=== PATIENT | male | born 1980 | race Caucasian/White ===

== ENCOUNTER 2018-02-06 05:40 | Inpatient (IN) ==
[2018-02-06] MEDS ORDERED: ceFAZolin 2 GM IV; once IV.SIG ONE (06:00)
[2018-02-06] MEDS ORDERED: Diphtheria/Tetanus/Pertussis Vaccine Inj 0.5 ML Syringe IM ONE (06:00)
[2018-02-06] MEDS ORDERED: Sod Chloride 0.9% Inj 1,000 ML IV.SIG SCH (06:00)
[2018-02-06 06:05] LABS: Baso # (Auto) 0.2 th/mm3 (0.0-0.2); Baso % (Auto) 1.4 % (0.0-2.0); Eos # (Auto) 0.4 th/mm3 (0.0-0.4); Eos % (Auto) 2.4 % (0.0-4.0); Hematocrit 44.4 % (39.0-51.0); Hemoglobin 14.6 gm/dL (13.0-17.0); Lymph # (Auto) 3.5 th/mm3 (1.0-4.8); Lymph % (Auto) 21.7 % (9.0-44.0); Mean Corpuscular HGB Conc 32.9 % (32.0-36.0); Mean Corpuscular Hemoglobin 33.2 pg (27.0-34.0); Mean Corpuscular Volume 100.9 fL (80.0-100.0); Mean Platelet Volume 8.3 fL (7.0-11.0); Mono # (Auto) 0.6 th/mm3 (0.0-0.9); Mono % (Auto) 3.8 % (0.0-8.0); Neut # (Auto) 11.3 th/mm3 (1.8-7.7); Neut % (Auto) 70.7 % (16.0-70.0); Platelet Count 211 th/mm3 (150-450); Red Cell Distribution Width 13.3 % (11.6-17.2); White Blood Count 15.9 th/mm3 (4.0-11.0)
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
[2018-02-06 06:14] LABS: Activated Partial Thrombo Time 22.1 sec (24.3-30.1); INR 1.1 Ratio; Prothrombin Time 10.8 sec (9.8-11.6)
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
[2018-02-06] MEDS ORDERED: Morphine Inj 4 MG/ML Vial IV.PUSH PRN (07:30)
[2018-02-06 10:38] LABS: Bilirubin,Urine Negative (Negative); Clarity,Urine Hazy (Clear); Color,Urine Yellow (Yellw/Straw); Glucose,Urine (UA) Negative (Negative); Leukocyte Esterase,Urine Negative (Negative); Mucus,Urine Few /lpf (Occasional); Nitrite,Urine Negative (Negative); Specific Gravity,Urine 1.047 (1.002-1.035)
[2018-02-06 10:52] LABS: Amphetamine Screen,Urine Neg (Neg); Barbiturate Screen,Urine Neg (Neg); Cannabinoid Screen,Urine Neg (Neg); Cocaine Screen,Urine Neg (Neg)
[2018-02-06 10:56] LABS: Opiate Screen,Urine Neg (Neg)
[2018-02-06] MEDS: oxyCODONE/Acetaminophen 10/325 Tablet PO PRN ×2 (11:21→14:59)
[2018-02-06] MEDS: Sod Chloride 0.9% Inj 1,000 ML IV.CONT SCH ×3 (11:21→18:28)
[2018-02-06] MEDS: Pantoprazole Inj 40 MG Vial IV.PUSH SCH (11:21)
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
[2018-02-06] MEDS ORDERED: Naloxone Inj 0.4 MG/ML Vial IV.PUSH PRN (15:11)
[2018-02-06] MEDS ORDERED: chlordiazePOXIDE 25 MG Capsule PO PRN (15:18)
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
[2018-02-06] MEDS: HYDROmorphone PCA Inj 6 MG/30 ML PCA.VIAL PCA PRN ×2 (15:43→22:07)
[2018-02-06] MEDS: ceFAZolin 2 GM Premix Inj 2 GM/50 ML PIGGYBACK IV.SIG SCH (15:43)
[2018-02-06] MEDS: Methocarbamol 500 MG Tablet PO SCH ×2 (16:05→22:05)
[2018-02-06] MEDS: Multivitamin Inj 10 ML, Thiamine Inj 100 MG, Folic Acid Inj 1 MG in Sodium Chlor 0.9% I... IV.SIG SCH (17:47)
[2018-02-06] MEDS: Senna/Docusate Sodium 8.6/50 MG Tablet PO SCH (22:05)
[2018-02-07] MEDS: ceFAZolin 2 GM Premix Inj 2 GM/50 ML PIGGYBACK IV.SIG SCH ×3 (02:26→16:49)
[2018-02-07 04:25] LABS: Baso % (Auto) 0.4 % (0.0-2.0); Eos % (Auto) 0.4 % (0.0-4.0); Hematocrit 38.2 % (39.0-51.0); Lymph # (Auto) 1.6 th/mm3 (1.0-4.8); Lymph % (Auto) 17.3 % (9.0-44.0); Mean Corpuscular Hemoglobin 34.2 pg (27.0-34.0); Mean Corpuscular Volume 100.7 fL (80.0-100.0); Mean Platelet Volume 8.9 fL (7.0-11.0); Mono # (Auto) 0.9 th/mm3 (0.0-0.9); Mono % (Auto) 9.1 % (0.0-8.0); Neut # (Auto) 6.9 th/mm3 (1.8-7.7); Neut % (Auto) 72.8 % (16.0-70.0); Platelet Count 130 th/mm3 (150-450); Red Blood Count 3.79 mil/mm3 (4.50-5.90); Red Cell Distribution Width 12.9 % (11.6-17.2); White Blood Count 9.5 th/mm3 (4.0-11.0)
[2018-02-07 05:24] LABS: Albumin 3.6 g/dL (3.4-5.0); Calcium 7.4 mg/dL (8.5-10.1); Carbon Dioxide 26.4 meq/L (21.0-32.0); Total Protein 6.2 g/dL (6.4-8.2)
[2018-02-07] MEDS: HYDROmorphone PCA Inj 6 MG/30 ML PCA.VIAL PCA PRN ×2 (08:30→16:50)
[2018-02-07] MEDS: Methocarbamol 500 MG Tablet PO SCH ×3 (08:43→21:25)
[2018-02-07] MEDS: Pantoprazole Inj 40 MG Vial IV.PUSH SCH (08:43)
[2018-02-07] MEDS: Senna/Docusate Sodium 8.6/50 MG Tablet PO SCH ×2 (08:44→21:25)
[2018-02-07] MEDS: Sod Chloride 0.9% Inj 1,000 ML IV.CONT SCH ×3 (11:00→18:38)
[2018-02-07] MEDS: Multivitamin Inj 10 ML, Thiamine Inj 100 MG, Folic Acid Inj 1 MG in Sodium Chlor 0.9% I... IV.SIG SCH (13:07)
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
[2018-02-07] MEDS: Enoxaparin Inj 30 MG/0.3 ML Syringe SQ SCH (21:25)
[2018-02-08] MEDS: ceFAZolin 2 GM Premix Inj 2 GM/50 ML PIGGYBACK IV.SIG SCH ×3 (00:14→15:05)
[2018-02-08] MEDS ORDERED: RESP: Racemic Epinephrine 2.25% 0.5 ML Neb NEB SCH (01:45)
[2018-02-08 04:25] LABS: Baso % (Auto) 0.6 % (0.0-2.0); Eos # (Auto) 0.1 th/mm3 (0.0-0.4); Eos % (Auto) 1.3 % (0.0-4.0); Hematocrit 36.4 % (39.0-51.0); Hemoglobin 12.3 gm/dL (13.0-17.0); Lymph % (Auto) 14.5 % (9.0-44.0); Mean Corpuscular HGB Conc 33.8 % (32.0-36.0); Mean Corpuscular Hemoglobin 33.9 pg (27.0-34.0); Mean Corpuscular Volume 100.5 fL (80.0-100.0); Mean Platelet Volume 8.7 fL (7.0-11.0); Mono # (Auto) 0.5 th/mm3 (0.0-0.9); Mono % (Auto) 6.8 % (0.0-8.0); Neut # (Auto) 5.5 th/mm3 (1.8-7.7); Neut % (Auto) 76.8 % (16.0-70.0); Platelet Count 112 th/mm3 (150-450); Red Blood Count 3.62 mil/mm3 (4.50-5.90); Red Cell Distribution Width 12.8 % (11.6-17.2); White Blood Count 7.2 th/mm3 (4.0-11.0)
[2018-02-08 04:44] LABS: Albumin 3.3 g/dL (3.4-5.0); Anion Gap 7 meq/L (5-15); Aspartate Aminotransferase 72 U/L (15-37); Blood Urea Nitrogen 12 mg/dL (7-18); Carbon Dioxide 26.7 meq/L (21.0-32.0); Chloride 105 meq/L (98-107); Glomerular Filtration Rate Greater Than 89 mL/min (>89); Glucose,Random 100 mg/dL (74-106); Potassium 3.6 meq/L (3.5-5.1); Sodium 139 meq/L (136-145)
[2018-02-08 04:48] LABS: Alanine Aminotransferase 58 U/L (12-78); Alkaline Phosphatase 71 U/L (45-117); Total Protein 6.2 g/dL (6.4-8.2)
[2018-02-08] MEDS: Methocarbamol 500 MG Tablet PO SCH ×3 (05:49→22:54)
[2018-02-08] MEDS ORDERED: Sodium Chloride 0.65% Nasal Spray 45 ML Bottle EACH NARE PRN (11:18)
[2018-02-08] MEDS: HYDROmorphone PCA Inj 6 MG/30 ML PCA.VIAL PCA PRN (11:44)
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
[2018-02-08] MEDS: Acetaminophen 325 MG Tablet PO PRN ×2 (16:42→20:43)
[2018-02-08] MEDS: LORazepam 1 MG Tablet PO PRN (18:21)
[2018-02-08] MEDS: Enoxaparin Inj 30 MG/0.3 ML Syringe SQ SCH ×2 (20:39→23:15)
[2018-02-08] MEDS: Senna/Docusate Sodium 8.6/50 MG Tablet PO SCH ×2 (20:40→23:15)
[2018-02-08] MEDS: Multivitamin Inj 10 ML, Thiamine Inj 100 MG, Folic Acid Inj 1 MG in Sodium Chlor 0.9% I... IV.SIG SCH (23:15)
[2018-02-08] MEDS: Pantoprazole Inj 40 MG Vial IV.PUSH SCH (23:15)
[2018-02-09] MEDS: ceFAZolin 2 GM Premix Inj 2 GM/50 ML PIGGYBACK IV.SIG SCH (00:10)
[2018-02-09] MEDS: Acetaminophen 325 MG Tablet PO PRN (02:50)
[2018-02-09 05:13] LABS: Baso # (Auto) 0.1 th/mm3 (0.0-0.2); Baso % (Auto) 0.9 % (0.0-2.0); Eos # (Auto) 0.2 th/mm3 (0.0-0.4); Eos % (Auto) 2.3 % (0.0-4.0); Hematocrit 38.3 % (39.0-51.0); Lymph # (Auto) 1.2 th/mm3 (1.0-4.8); Lymph % (Auto) 18.6 % (9.0-44.0); Mean Corpuscular Hemoglobin 33.6 pg (27.0-34.0); Mean Corpuscular Volume 98.7 fL (80.0-100.0); Mono # (Auto) 0.5 th/mm3 (0.0-0.9); Mono % (Auto) 7.1 % (0.0-8.0); Neut # (Auto) 4.8 th/mm3 (1.8-7.7); Neut % (Auto) 71.1 % (16.0-70.0); Platelet Count 133 th/mm3 (150-450); Red Blood Count 3.88 mil/mm3 (4.50-5.90); Red Cell Distribution Width 12.6 % (11.6-17.2); White Blood Count 6.7 th/mm3 (4.0-11.0)
[2018-02-09 05:41] LABS: Alanine Aminotransferase 48 U/L (12-78); Albumin 3.2 g/dL (3.4-5.0); Alkaline Phosphatase 70 U/L (45-117); Anion Gap 11 meq/L (5-15); Aspartate Aminotransferase 51 U/L (15-37); Blood Urea Nitrogen 8 mg/dL (7-18); Calcium 8.8 mg/dL (8.5-10.1); Carbon Dioxide 24.9 meq/L (21.0-32.0); Chloride 104 meq/L (98-107); Glomerular Filtration Rate Greater Than 89 mL/min (>89); Glucose,Random 93 mg/dL (74-106); Potassium 3.6 meq/L (3.5-5.1); Sodium 140 meq/L (136-145); Total Protein 6.7 g/dL (6.4-8.2)
[2018-02-09] MEDS: Methocarbamol 500 MG Tablet PO SCH ×3 (06:08→21:06)
[2018-02-09] MEDS: LORazepam 1 MG Tablet PO PRN ×2 (06:08→22:02)
[2018-02-09] MEDS ORDERED: HYDROmorphone PF Inj 2 MG/ML Vial IV.PUSH PRN (07:00)
[2018-02-09] MEDS: Enoxaparin Inj 30 MG/0.3 ML Syringe SQ SCH ×2 (10:11→21:06)
[2018-02-09] MEDS: Senna/Docusate Sodium 8.6/50 MG Tablet PO SCH ×2 (10:12→21:06)
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
[2018-02-10] MEDS: Methocarbamol 500 MG Tablet PO SCH ×3 (07:12→21:02)
[2018-02-10] MEDS: Enoxaparin Inj 30 MG/0.3 ML Syringe SQ SCH ×2 (08:23→21:02)
[2018-02-10] MEDS: Senna/Docusate Sodium 8.6/50 MG Tablet PO SCH ×2 (08:23→21:02)
[2018-02-10] MEDS: Gabapentin 300 MG Capsule PO SCH ×3 (08:29→17:05)
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
[2018-02-10] MEDS ORDERED: Chlorhexidine Gluconate 2% 1 Pack (2 Cloths) TOPICAL SCH (11:15)
[2018-02-10] MEDS ORDERED: Metoprolol Tartrate 25 MG Tablet PO SCH (11:15)
[2018-02-10] MEDS ORDERED: Sodium Chlor 0.9% Inj 500 ML IV.SIG SCH (12:00)
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
[2018-02-10] MEDS: LORazepam 1 MG Tablet PO PRN (21:02)
[2018-02-11] MEDS: Methocarbamol 500 MG Tablet PO SCH ×3 (06:08→21:10)
[2018-02-11] MEDS: Gabapentin 300 MG Capsule PO SCH ×3 (08:38→17:45)
[2018-02-11] MEDS: Senna/Docusate Sodium 8.6/50 MG Tablet PO SCH ×2 (08:38→21:10)
[2018-02-11] MEDS: Enoxaparin Inj 30 MG/0.3 ML Syringe SQ SCH ×2 (08:39→21:09)
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
[2018-02-11] MEDS: LORazepam 1 MG Tablet PO PRN (23:42)
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
[2018-02-12] MEDS: Methocarbamol 500 MG Tablet PO SCH ×3 (06:23→21:19)
[2018-02-12] MEDS: Enoxaparin Inj 30 MG/0.3 ML Syringe SQ SCH ×2 (08:29→21:19)
[2018-02-12] MEDS: Senna/Docusate Sodium 8.6/50 MG Tablet PO SCH ×2 (08:30→21:19)
[2018-02-12] MEDS: Gabapentin 300 MG Capsule PO SCH ×3 (08:30→17:10)
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
[2018-02-12] MEDS: LORazepam 1 MG Tablet PO PRN (23:41)
[2018-02-13] MEDS: Methocarbamol 500 MG Tablet PO SCH (06:08)
[2018-02-13] MEDS: Senna/Docusate Sodium 8.6/50 MG Tablet PO SCH (08:55)
[2018-02-13] MEDS: Gabapentin 300 MG Capsule PO SCH ×3 (08:55→17:47)
[2018-02-13] MEDS: Enoxaparin Inj 30 MG/0.3 ML Syringe SQ SCH (08:56)
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
[2018-02-13] MEDS: LORazepam 1 MG Tablet PO PRN (22:21)
[2018-02-14] MEDS ORDERED: Sodium Chlor 0.9% Inj 500 ML IV.SIG SCH (01:00)
[2018-02-14] MEDS ORDERED: Chlorhexidine Gluconate 2% 1 Pack (2 Cloths) TOPICAL SCH (01:00)
[2018-02-14] MEDS: Senna/Docusate Sodium 8.6/50 MG Tablet PO SCH ×3 (06:41→22:00)
[2018-02-14] MEDS: Enoxaparin Inj 30 MG/0.3 ML Syringe SQ SCH ×2 (06:41→08:02)
[2018-02-14] MEDS: Gabapentin 300 MG Capsule PO SCH ×3 (08:03→17:19)
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
[2018-02-14] MEDS ORDERED: Bisacodyl 10 MG Supp RECTAL PRN (18:47)
[2018-02-14] MEDS ORDERED: *morphine SULFATE 4 MG/ML PERIprocedure ONLY ONE (18:57)
--- NOTE | 2018-02-14 19:02 | XR ---
EXAM DATE: 02/14/2018 6:56 PM EDT AGE/SEX: 37 years / Male INDICATIONS: Post halo placement. CLINICAL DATA: This is the patient's initial encounter. Patient reports that signs and symptoms have been present for 1 day and indicates a pain score of 6/10. MEDICAL/SURGICAL HISTORY: None. None. COMPARISON: [facility] [place], XR cervical spine flx/ext only, 02/07/2018. [facility] [place], MR CERVICAL SPINE W/O CONTRAS T, 02/06/2018. [facility] [place], CT CERVICAL SPINE W/O CONTRAST, 02/06/2018. . FINDINGS: A single lateral view of the cervical spine was performed after halo placement. There is less than 3 mm posterior displacement of the dens with respect to the body of C2, as measured both anterior and p osterior. Prior CT had demonstrated mild anterior angulation of the dens; there is no angulation on t his image. The remainder of the alignment of the cervical vertebral bodies is maintained (7 preverteb ral soft tissues are normal thickness. The separation between the anterior arch of C1 and the dens is normal and measures less than 2 mm. CONCLUSION: Less than 3 mm posterior displacement of the dens with respect to the body of C2 without angulation o f the dens, in halo. Electronically signed by: Darnell Conte MD 02/14/2018 7:00 PM EDT
[2018-02-14] MEDS: LORazepam 1 MG Tablet PO PRN (22:06)
[2018-02-15] MEDS: Enoxaparin Inj 30 MG/0.3 ML Syringe SQ SCH ×3 (02:51→21:56)
[2018-02-15] MEDS: Gabapentin 300 MG Capsule PO SCH ×3 (10:43→18:45)
[2018-02-15] MEDS: Senna/Docusate Sodium 8.6/50 MG Tablet PO SCH ×2 (10:43→21:55)
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
--- NOTE | 2018-02-15 15:07 | P.DCO ---
- Home Health Nursing Order: Wound care and dressing changes (pin care bid, cleanse with peroxide then apply bacitracin to all four pins twice daily) - Certification I have seen patient Hector Santiago on 02/15/18. My clinical findings support the need for the requested home health care services because: Limited mobility due to disease progression, High risk of falls I certify that my clinical findings support that this patient is homebound because: Unsafe to leave home unassisted
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
[2018-02-15] MEDS: LORazepam 1 MG Tablet PO PRN (23:11)
[2018-02-16] MEDS: Enoxaparin Inj 30 MG/0.3 ML Syringe SQ SCH (10:02)
[2018-02-16] MEDS: Gabapentin 300 MG Capsule PO SCH ×2 (10:02→13:36)
[2018-02-16] MEDS: Senna/Docusate Sodium 8.6/50 MG Tablet PO SCH (10:02)
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
== END 2018-02-16 14:16 | disposition home health service (06) ==
LOC: NEPI 05:40 → EDBD 06:29 → NEDA 06:29 → N03 06:33 → N06 02-08 20:02
PROVIDERS: ADMIT Surgery; ATTEND Surgery